=== PATIENT | female | born 1975 | race Two or more races ===

== ENCOUNTER 2017-12-29 10:25 | Outpatient (CLI) | payer OTHER | END 2017-12-29 10:37 | disposition home or self-care (01) | LOC: MAMO-SONO 10:25 | DX: Z12.31 Encounter for screening mammogram for malignant neoplasm of breast (principal) ==

== ENCOUNTER 2020-05-11 10:30 | Outpatient (CLI) | payer OTHER | END 2020-05-11 10:48 | disposition home or self-care (01) | LOC: MAMO-SONO 10:30 | PROVIDERS: ATTEND Internal Medicine Infectious Disease | DX: Z12.31 Encounter for screening mammogram for malignant neoplasm of breast (principal); D24.9 Benign neoplasm of unspecified breast ==

== ENCOUNTER 2024-12-06 13:23 | Outpatient (CLI) | payer OTHER | END 2024-12-06 13:32 | disposition home or self-care (01) | LOC: MAMO-SONO 13:23 | PROVIDERS: ATTEND Internal Medicine Infectious Disease | DX: Z12.31 Encounter for screening mammogram for malignant neoplasm of breast (principal) ==